=== PATIENT | male | born 1965 | race Caucasian/White ===

== ENCOUNTER 2018-04-17 12:46 | Day surgery (SDC) | payer OTHER ==
[~2018-04-17] VITALS: Ht 193 cm; Wt 152.5 kg
[2018-04-17] VITALS (14 sets, daily range): BP systolic 101–127; BP diastolic 57–78
[2018-04-17] MEDS ORDERED: fentaNYL/PF 50MCG/1 ML 2ML syringe IV ONE (13:00)
[2018-04-17] MEDS ORDERED: MIDAZolam 1mg/ml 10ml vial IV ONE (13:00)
[2018-04-17] MEDS ORDERED: normal saline 1000ml 1,000 ML IV SCH (13:05)
[2018-04-17] MEDS ORDERED: ATOR20TA PO (13:39)
[2018-04-17] MEDS ORDERED: DAPA1TAB7 PO (13:39)
[2018-04-17] MEDS ORDERED: CANA1TAB7 PO (13:39)
[2018-04-17] MEDS ORDERED: AMLO10TA PO (13:39)
[2018-04-17] MEDS ORDERED: NEBI20TA2 PO (13:39)
[2018-04-17] MEDS ORDERED: OMEG-79 PO (13:39)
[2018-04-17] MEDS ORDERED: FLO0.4C PO (13:39)
[2018-04-17] MEDS ORDERED: NAPR220T67 PO (13:39)
[2018-04-17] MEDS ORDERED: APIX5TAB3 PO (13:39)
[2018-04-17] MEDS ORDERED: AZIL1TAB3 PO (13:39)
[2018-04-17] MEDS ORDERED: CLON-529 PO (13:39)
== END 2018-04-17 18:30 | disposition home or self-care (01) ==
LOC: SSTAY O 12:46
PROVIDERS: ATTEND Internal Medicine Interventional Cardiology
DX: I48.2 Chronic atrial fibrillation (principal); I10 Essential (primary) hypertension; E11.9 Type 2 diabetes mellitus without complications; G47.33 Obstructive sleep apnea (adult) (pediatric); N40.0 Benign prostatic hyperplasia without lower urinary tract symptoms; Z87.891 Personal history of nicotine dependence; Z90.49 Acquired absence of other specified parts of digestive tract; Z90.89 Acquired absence of other organs; Z79.01 Long term (current) use of anticoagulants; Z79.899 Other long term (current) drug therapy; Z98.890 Other specified postprocedural states
CPT/HCPCS: 82948; 92960; 93005; J2250; J3010; J7030; A4620